=== PATIENT | male | born 1965 ===

== ENCOUNTER 2020-10-18 21:14 | Emergency (ER) | payer SELFPAY ==
[2020-10-18] MEDS ORDERED: IBUPROFEN 600 MG TAB PO ONE (23:24)
[2020-10-18] MEDS ORDERED: ACETAMINOPHEN 500 MG TAB PO ONE (23:24)
--- NOTE | 2020-10-19 00:21 | XRay Report ---
LEFT HAND 3 VIEWS 2340 INDICATION: Injury from a fall - pain COMPARISON: None available. FINDINGS: Fingers are flexed making evaluation difficult. No fractures or dislocations are obvious. Signer Name: Emeka Ribeiro MD Signed: 10/19/2020 12:16 AM Workstation Name: [id number]
--- NOTE | 2020-10-19 02:22 | Emergency Department Report ---
ED Upper Extremity Inj HPI - General Chief Complaint: Extremity Injury, Upper Stated Complaint: LT ARM PAIN Source: patient Mode of arrival: Ambulatory Limitations: No Limitations - History of Present Illness Initial Comments: Patient is a 55-year-old white male with chronic neck pain who presents to the ED with complaint of acute onset persistent severe left hand pain and swelling after he slipped and fell down and landed on his left hand about a week ago at work. Patient states that any active range of motion of his left hand makes the pain worse. Patient denies wrist pain, neck pain, head or neck injuries, back pain, chest pain, shortness of breath, numbness and tingling or weakness of left hand or dizziness, syncope or seizures. Complaint: Injury to:: left, hand (pain) -: Sudden, week(s) (1) Other Extremity Injury: Hand: Left (pain, swelling) Other Injuries: none Place: home Severity scale (0 -10): 8 Improves With: none Worsens With: movement of extremity Context: fall, direct blow Associated Symptoms: denies other symptoms. denies: weakness, numbness, neck pain, suspects foreign body, nausea/vomiting, heard/felt popping sensat - Related Data Previous Rx's Medication Instructions Recorded Last Taken Type Ibuprofen [Motrin] 800 mg PO Q8HR PRN #30 tablet 10/19/20 Unknown Rx Allergies Allergy/AdvReac Type Severity Reaction Status Date / Time No Known Allergies Allergy Verified 10/19/20 02:36 ED Review of Systems ROS: Stated complaint: LT ARM PAIN Other details as noted in HPI Constitutional: denies: chills, fever Eyes: denies: eye pain, eye discharge, vision change ENT: denies: ear pain, throat pain Respiratory: denies: cough, shortness of breath, wheezing Cardiovascular: denies: chest pain, palpitations Endocrine: no symptoms reported Gastrointestinal: denies: abdominal pain, nausea, diarrhea Genitourinary: denies: urgency, dysuria Musculoskeletal: joint swelling, arthralgia (left hand pain and swelling), myalgia. denies: back pain Skin: denies: rash, lesions Neurological: denies: headache, weakness, paresthesias Psychiatric: denies: anxiety, depression Hematological/Lymphatic: denies: easy bleeding, easy bruising ED Past Medical Hx - Past Medical History Previous Medical History?: Yes Additional medical history: fuse neck, ulner nerve disposition - Surgical History Past Surgical History?: Yes Additional Surgical History: kidney stone sx - Medications Home Medications: Home Medications Medication Instructions Recorded Confirmed Last Taken Type Ibuprofen [Motrin] 800 mg PO Q8HR PRN #30 tablet 10/19/20 Unknown Rx ED Physical Exam - General Limitations: No Limitations General appearance: alert, in no apparent distress - Head Head exam: Present: atraumatic, normocephalic, normal inspection - Eye Eye exam: Present: normal appearance, PERRL, EOMI Pupils: Present: normal accommodation - ENT ENT exam: Present: normal exam, normal orophraynx, mucous membranes moist, TM's normal bilaterally, normal external ear exam - Neck Neck exam: Present: normal inspection, full ROM - Respiratory Respiratory exam: Present: normal lung sounds bilaterally. Absent: respiratory distress, wheezes, rales, chest wall tenderness, decreased breath sounds, prolonged expiratory - Cardiovascular Cardiovascular Exam: Present: regular rate, normal rhythm, normal heart sounds. Absent: systolic murmur, diastolic murmur, rubs, gallop - GI/Abdominal GI/Abdominal exam: Present: soft, normal bowel sounds. Absent: tenderness, guarding, rebound, hyperactive bowel sounds, hypoactive bowel sounds, organomegaly - Extremities Exam Extremities exam: Present: normal inspection, full ROM, tenderness (Palpable left hand tenderness), normal capillary refill, joint swelling. Absent: pedal edema - Back Exam Back exam: Present: normal inspection, full ROM. Absent: tenderness, CVA tenderness (R), CVA tenderness (L), muscle spasm, paraspinal tenderness - Neurological Exam Neurological exam: Present: alert, oriented X3, CN II-XII intact, normal gait, reflexes normal - Psychiatric Psychiatric exam: Present: normal affect, normal mood - Skin Skin exam: Present: warm, dry, intact, normal color. Absent: rash ED Course Vital Signs 10/19/20 02:55 Respiratory 16 Rate ED Medical Decision Making - Radiology Data Radiology results: report reviewed, image reviewed [facility] [address] [place] [address] XRay Report Signed Patient: JOAQUIN BHATTI MR#: [id number] : 1965 Acct:[id number] Age/Sex: 55 / M ADM Date: 10/18/20 Loc: ED Attending Dr: Ordering Physician: LINDSEY THOMAS Date of Service: 10/18/20 Procedure(s): XR hand 3+V LT Accession Number(s): [id number] cc: LINDSEY THOMAS Fluoro Time In Minutes: LEFT HAND 3 VIEWS 2340 INDICATION: Injury from a fall - pain COMPARISON: None available. FINDINGS: Fingers are flexed making evaluation difficult. No fractures or dislocations are obvious. Signer Name: Emeka Ribeiro MD Signed: 10/19/2020 12:16 AM Workstation Name: [id number] Transcribed By: Dictated By: Emeka Ribeiro MD Electronically Authenticated By: Emeka Ribeiro MD Signed Date/Time: 10/19/2015 DD/ TD/TT: Print Cancel - Medical Decision Making This is a 55-year-old white male with chronic neck pain who presents to the ED with complaint of acute onset persistent severe left hand pain and swelling after he slipped and fell down and landed on his left hand about a week ago at work. Patient states that any active range of motion of his left hand makes the pain worse. In the ED, patient is alert and oriented x3 and is not in any distress but appears to be in pain. Patient was treated for pain in the ED. Left hand x-ray showed no acute fractures or subluxations. On reevaluation, patient's pain is well controlled medication. Patient will discharge home on pain medications and advised to follow-up with his primary care physician in 5 to 7 days for reevaluation or return to the ED immediately if symptoms get worse. - Differential Diagnosis Hand fracture; hand contusion; hand sprain Critical care attestation.: If time is entered above; I have spent that time in minutes in the direct care of this critically ill patient, excluding procedure time. ED Disposition Clinical Impression: Sprain of left hand Qualifiers: Encounter type: initial encounter Qualified Code(s): S63.92XA - Sprain of unspecified part of left wrist and hand, initial encounter Contusion of left hand Qualifiers: Encounter type: initial encounter Qualified Code(s): S60.222A - Contusion of left hand, initial encounter Disposition: - TO HOME OR SELFCARE Is pt being admited?: No Does the pt Need Aspirin: No Condition: Stable Instructions: Hand Contusion, [id number] Additional Instructions: Left hand x-ray showed no acute fractures or subluxations. Therefore take medications with food, drink plenty of fluids and follow-up with your primary care physician in 5 to 7 days for reevaluation. Return to the ED immediately if symptoms get worse. Prescriptions: Ibuprofen [Motrin] 800 mg PO Q8HR PRN #30 tablet PRN Reason: Pain , Severe (7-10) Referrals: [facility] [Provider Group] - 3-5 Days Time of Disposition: 02:17 Print Language: PRYDEINIG
[2020-10-19] MEDS ORDERED: IBUPROFEN 600 MG TAB PO ONE (02:45)
[2020-10-19] MEDS ORDERED: ACETAMINOPHEN 500 MG TAB PO ONE (02:45)
[2020-10-21 06:44] VITALS: BP 135/96
== END 2020-10-19 03:50 | disposition home or self-care (01) ==
LOC: ED 21:14
DX: S63.92XA Sprain of unspecified part of left wrist and hand, initial encounter (principal); S60.222A Contusion of left hand, initial encounter; Z79.899 Other long term (current) drug therapy; Z98.890 Other specified postprocedural states; W01.0XXA Fall on same level from slipping, tripping and stumbling without subsequent striking against object, initial encounter; Y93.89 Activity, other specified; Y92.238 Other place in hospital as the place of occurrence of the external cause; Y99.8 Other external cause status